=== PATIENT | male | born 2000 | race Two or more races ===

== ENCOUNTER 2021-08-17 16:26 | Outpatient (REF) | payer MEDICAID, SELFPAY ==
[2021-08-17 17:15] LABS: COVID-19 Test Negative (Negative)
== END 2021-08-17 16:27 | disposition home or self-care (01) ==
LOC: HO.LAB 16:26
PROVIDERS: Visit Provider Internal Medicine
DX: Z20.822 Contact with and (suspected) exposure to COVID-19 (principal)
CPT/HCPCS: 36415; 87635

== ENCOUNTER 2021-09-28 07:51 | Outpatient (REF) | payer MEDICAID, SELFPAY ==
[2021-09-28 08:17] LABS: COVID-19 Test Negative (Negative)
== END 2021-09-28 07:52 | disposition home or self-care (01) ==
LOC: HO.LAB 07:51
PROVIDERS: Visit Provider Internal Medicine
DX: Z20.822 Contact with and (suspected) exposure to COVID-19 (principal)
CPT/HCPCS: 36415; 87635

== ENCOUNTER 2021-09-29 04:40 | Emergency (ER) | payer MEDICAID, SELFPAY ==
--- NOTE | ~2021-09-29 | XR_ITS ---
EXAMINATION: XR CHEST CLINICAL INFORMATION: Cough COMPARISON: None TECHNIQUE: 2 views of the chest were obtained. FINDINGS: Cardiac silhouette is normal in size. The lungs are well aerated. There is no lobar consolidation. No pleural effusion or pneumothorax. No acute osseous abnormality. XR/XR chest 2V IMPRESSION: No acute pulmonary pathology.
[2021-09-29 05:58] LABS: IDNOW Serial# 9DD0AD1C; Strep A Nucleic Acid Negative (Negative)
[2021-09-29 05:59] LABS: COVID-19 Test Negative (Negative)
--- NOTE | 2021-09-29 06:37 | ED.URI ---
HPI - URI/Sore Throat General Time Seen by Provider: 09/29/21 06:37 Source: patient Mode of arrival: ambulatory Limitations: no limitations History of Present Illness MD elicited complaint: fever, cough and other (myalgias) Pertinent past history: other (vaccinated x 2 with Pfizer) Onset (ago): day(s) (2) Consistency: intermittent Severity: moderate Exacerbating factors: nothing Relieving factors: nothing Context: sick contacts (goes to college at [employer]) and other (also tells me that since June he has had intermittent fevers at times but no weight loss, night sweats, he is sexually active with males, last negative HIV test at that time) Associated symptoms: fever, chills, myalgias, headache, rhinorrhea and cough Treatments prior to arrival: none Related Data Allergies Allergy/AdvReac Type Severity Reaction Status Date / Time No Known Allergies Allergy Unverified 07/02/20 16:45 Review of Systems Review of Systems: Constitutional : positive Fever, positive Chills, positive fatigue, positive Malaise ENT/Mouth : no sore throat, positive runny nose Eyes: No Discharge Cardiovascular : No Chest Pain, No SOB Respiratory : pos Cough, No Sputum Gastrointestinal : No Nausea, No Vomiting, No Diarrhea Genitourinary : No Dysuria, No Urinary Frequency Musculoskeletal : positive Myalgia Skin : No rash Neuro : No Headache PMF Past Medical History Medical History (Updated 09/29/21 @ 06:46 by Candi Patterson DO) No known health problems Social History Social History (Updated 09/29/21 @ 06:43 by Candi Patterson DO) Alcohol intake: never Patient Tobacco Use Status: Never used Tobacco Use of substances other than those prescribed or required for medical reasons: No Advance Directives: No Advance Directives Information Provided: No Physical Exam Vital Signs: Appearance: Alert. Oriented X3. No acute distress. Eyes: Pupils equal, round and reactive to light. ENT: Pharynx normal. Neck: Normal inspection. Neck supple. CVS: Normal heart rate and rhythm. Pulses normal. Respiratory: No respiratory distress. Breath sounds normal. Abdomen: Soft and non-tender. Skin: Skin warm and dry. Normal skin color. Normal skin turgor. Extremities: No lower extremity edema. No calf ttp Neuro: Oriented X 3. No motor deficit. No sensory deficit. MDM - URI/Sore Throat MDM Narrative Medical decision making narrative: 21 yo male vaccinated x 2 with Pfizer here with 2 days of fevers, body aches, not feeling well chest congestion since Monday he is not toxic, O2 normal , recheck temp 99.4 HR 104 by me after medications (system on downtime) he is not toxic. I did discuss repeat COVID in 2 days but more importantly to get tested [facility] given he had a fever in July and August as well. He is aware of this and plans to go this week. Lab Data Labs: Lab Results 09/29/21 09/29/21 Range/Units 05:10 05:10 COVID-19 (NINA) Negative (Negative) COVID-19 Clin Com See Note S. pyogenes GrpA ROSHNI Negative (Negative) Discharge Plan Discharge Clinical Impression: Viral infection Fever Qualifiers: Fever type: unspecified Qualified Code(s): R50.9 - Fever, unspecified Patient Disposition: Home, Self-Care Instructions: Fever in Adults (ED), Viral Syndrome (ED) Additional Instructions: return to ED for any worsening symptoms or concerns it is important you follow up and get further testing for your fevers including either infectious die[facility] or [facility] as soon as possible COVID test negative x 2 repeat COVID test in 2 days Referrals: Carlita Soliz MD [Physician] - 3 days Stand Alone Forms: Work/School Release
== END 2021-09-29 07:12 | disposition home or self-care (01) ==
PROVIDERS: Emergency Provider Emergency Medicine
DX: R50.9 Fever, unspecified (principal); Z20.822 Contact with and (suspected) exposure to COVID-19
CPT/HCPCS: 36415; 71046; 87635; 87651; 99281; 99283

== ENCOUNTER 2022-07-10 12:28 | Emergency (ER) | payer MEDICAID, SELFPAY ==
[2022-07-10 15:05] VITALS: BP 124/68; PULSE 104; RESP 18; TEMP 37.7; O2SAT 98
[2022-07-10 15:28] LABS: Strep A Nucleic Acid Negative (Negative)
--- NOTE | 2022-07-10 15:32 | ED.GENADULT ---
HPI - General Adult General Chief complaint: Upper Respiratory Symptoms Stated complaint: Fever since Monday Time Seen by Provider: 07/10/22 15:32 Source: patient Mode of arrival: ambulatory Limitations: no limitations History of Present Illness HPI narrative: Patient is a 22 year old male presenting to the emergency department today with a cough and fever. Patient states that he has had a cough and fever for the last 3 days. Patient denies any dizziness, lightheadedness, abdominal pain, nausea, vomiting, chills, blurry vision, double vision, loss of vision, chest pain, difficulty breathing, shortness of breath, back pain, night sweats, pain with urination, increased urinary frequency, increased urinary urgency, blood in his urine or stool, syncope or a near syncopal episode, recent trauma or falls, bowel incontinence, bladder incontinence, bowel retention, bladder retention, or any other complaints at this time. Onset (ago): day(s) (3) Severity: mild Severity scale (1-10): 1 Quality: dull Pain Consistency: constant Relieving factors: none Exacerbating factors: none Associated symptoms: cough and fever/chills Treatments prior to arrival: none Related Data Allergies Allergy/AdvReac Type Severity Reaction Status Date / Time No Known Allergies Allergy Verified 07/10/22 15:05 Review of Systems Constitutional: Constitutional: Reports no additional constitutional complaints, Denies chills, Reports fever(s) and Denies night sweats Eyes: Eyes: Reports no additional eye complaints, Denies blurry vision, Denies change in vision, Denies diplopia, Denies eye discharge, Denies loss of vision and Denies eye pain ENT: Denies dizziness Cardiovascular: Cardiovascular: Reports no additional cardiovascular complaints, Denies chest pain, Denies lightheadedness, Denies Loss of Consciousness and Denies dyspnea Respiratory: Respiratory: Reports no additional respiratory complaints, Reports cough and Denies dyspnea Gastrointestinal: Gastrointestinal: Reports no additional gastrointestinal complaints, Denies abdominal pain, Denies melena, Denies hematochezia, Denies change in bowel habits and Denies change in stool character Genitourinary: Genitourinary: Reports no additional male genitourinary complaints, Denies hematuria, Denies oliguria, Denies difficulty urinating, Denies dysuria, Denies urinary frequency, Denies urinary hesitancy, Denies urinary incontinence and Denies urinary urgency Musculoskeletal: Musculoskeletal: Reports no additional musculoskeletal complaints, Denies numbness and Denies tingling Neurologic: Denies dizziness, Denies loss of vision, Denies numbness and Denies tingling Psychiatric: Psychiatric: Reports no additional psychiatric complaints Endocrine: Endocrine: Reports no additional endocrine complaints Hematologic/Lymphatic: Hematologic/Lymphatic: Reports no additional hematologic/lymphatic complaints Allergic/Immunologic: Allergic/Immunologic: Reports no additional allergic/immunologic complaints PMFSH Past Medical History Attestation statement: The following information was validated with the patient. Source: old records reviewed Medical History No known health problems Social History Social History Alcohol intake: never Patient Tobacco Use Status: Never used Tobacco Advance Directives: No Advance Directives Information Provided: Yes Physical Exam ED Vital Signs: Vital Signs - 24 hr 07/10/22 15:05 Temperature 99.9 F Pulse Rate 104 H Respiratory Rate 18 Blood Pressure 124/68 Pulse Oximetry 98 Oxygen Delivery Method Room Air BMI result Body Mass Index 0.2 Const General: cooperative, no acute distress, alert and awake Nutritional Appearance: well nourished Orientation/consciousness: patient oriented x3 Limitations: no limitations HENMT Head: Yes normal to inspection and Yes atraumatic Ears: hearing grossly normal bilaterally and external ears normal General nose exam: Normal external nose present, no nasal discharge noted and no epistaxis Face and sinus: Yes normal facial exam, No abrasion and No laceration Mouth: Normal oral and palatal mucosa present, no drooling and no muffled voice Eyes General: appearance normal, both eyes and all related structures Periorbital: periorbital findings normal Eyelids: Yes eyelids normal Conjunctivae: conjunctivae normal Pupils: Equal, round and reactive pupils present EOM: EOMs intact bilaterally Neck Neck: Yes normal visual inspection, Yes full ROM and Yes no lymphadenopathy Chest Chest palpation & inspection: normal inspection of the chest Resp Effort & Inspection: normal respiratory effort and able to speak in complete sentences Auscultation: clear to auscultation bilaterally Cardio Rate: regular rate Rhythm: regular rhythm GI Inspection: Yes normal to inspection Neuro General: patient oriented x3 and moves all extremities Cranial nerves: Yes Equal, round and reactive pupils present Cognition (Neuro): normal cognition Motor exam (neuro): 5/5 motor strength present throughout Sensory Exam: Normal double simultaneous stimulation for sensation Coordination: [id number] test normal Extrem General: Yes normal to inspection, Yes full ROM and Yes capillary refill normal Psych Appearance: grossly normal Mental Status: mental status grossly normal Affect: normal affect Attitude: cooperative Thought process: Normal thought process present Thought content: Normal thought content present Insight: Good insight present (Psych) Medical Decision Making MDM Narrative Medical decision making narrative: Patient is a 22 year old male presenting to the emergency department today with a cough and a fever. Patient's physical exam was unremarkable. Patient's rapid COVID and strep tests were negative. I explained my physical exam findings as well as all test results to the patient. I answered all questions asked by the patient. I stressed the importance of the patient taking his medication as prescribed. I stressed the importance of the patient following up with his primary care provider. I stressed the importance of the patient returning to the emergency department immediately if his symptoms were to worsen or if he were to develop any dizziness, shortness of breath, difficulty breathing, chest pain, blurry vision, loss of vision, nausea, vomiting, abdominal pain, fever, chills, back pain, or any other complaints. Patient verbalized agreement and understanding with this treatment plan and discharge. Medical Records Medical records reviewed: Yes I reviewed the patient's medical records. Lab Data Lab results reviewed: Yes I reviewed the patient's lab results. Labs: Lab Results 07/10/22 07/10/22 Range/Units 14:59 15:11 COVID-19 (NINA) Negative (Negative) COVID-19 Clin Com See Note S. pyogenes GrpA ROSHNI Negative (Negative) Discharge Plan Discharge Clinical Impression: Upper respiratory infection Patient Disposition: Home, Self-Care Instructions: Upper Respiratory Infection (ED) Additional Instructions: Follow up with your primary care provider. Return to the emergency department immediately if your symptoms worsen or if you develop any dizziness, shortness of breath, difficulty breathing, chest pain, blurry vision, loss of vision, nausea, vomiting, abdominal pain, fever, chills, back pain, or any other complaints. Referrals: Lucie Ignacio MD [Primary Care Provider] - Stand Alone Forms: Work/School Release Print Language: Singaporean
[2022-07-10 15:33] LABS: COVID-19 Test Negative (Negative); IDNOW Serial# 16C4AD1C
== END 2022-07-10 16:24 | disposition home or self-care (01) ==
PROVIDERS: Emergency Provider Internal Medicine; PCP Internal Medicine
DX: J06.9 Acute upper respiratory infection, unspecified (principal); R50.9 Fever, unspecified; R05.9 Cough, unspecified; Z20.822 Contact with and (suspected) exposure to COVID-19; Z79.899 Other long term (current) drug therapy
CPT/HCPCS: 36415; 87635; 87651; 99283

== ENCOUNTER 2023-08-07 10:35 | Outpatient (REF) | payer MEDICAID, SELFPAY ==
[2023-08-07 15:16] LABS: Alanine Aminotransferase 17 U/L (0-40); Albumin Level 4.9 g/dL (3.5-5.0); Alkaline Phosphatase 74 U/L (39-117); Aspartate Amino Transferase 17 U/L (5-37); Bilirubin Direct 0.4 mg/dL (0.0-0.5); Bilirubin Total 1.1 mg/dL (0.0-1.0); Total Protein 8.2 g/dL (6.5-8.0)
[2023-08-07 16:30] LABS: CT PCR NOT DETECTED (Not Detect.); NG PCR NOT DETECTED (Not Detect.)
[2023-08-08 09:14] LABS: Syphilis Screen Nonreactive (Nonreactive)
[2023-08-08 09:27] LABS: HIV AB/AG Nonreactive (Nonreactive); HIV Num 1 0.05 S/CO (0.00-0.99)
== END 2023-08-07 10:36 | disposition home or self-care (01) ==
LOC: HO.CHCLDS 10:35
PROVIDERS: Visit Provider Internal Medicine
DX: Z11.3 Encounter for screening for infections with a predominantly sexual mode of transmission (principal)
CPT/HCPCS: 0353U; 80076; 86780; 87389

== ENCOUNTER 2023-08-30 08:08 | Outpatient (AMB) | payer MEDICAID, SELFPAY ==
--- NOTE | 2023-08-30 08:17 | MHC.OFFVIS ---
Intake Vital Signs 08/30/23 08:19 Height 5 ft 6 in Weight 167 lb BMI 27.0 BP 105/63 Blood Pressure Location Lt brachial Position Sitting Pulse 90 Intake Visit Reasons: Constipation Intake Note: Patient new consult for Constipation. Patient cc: abdominal bloating on and off, constipation with some blood, hemorrhoids ??, and denies any other GI issues. 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 Patient was sent to us by his PCP. Patient reports ongoing constipation. Patient reports that he has been constipated for over a month. He tried to incorporate fiber in his diet. Tried taking Metamucil, drinking minimal mom 36 oz of water every day and he continues to be constipated. Patient reports abdominal bloating and cramping when he is constipated. Occasional blood when he wipes after a bowel movement. Patient did notice rectal bulge that is only there after bowel movement when he is very constipated. Patient denies melena, hematochezia, unintentional weight loss or ribbon like stools. Patient denies any acid reflux, dyspepsia, dysphagia or odynophagia. Patient reports a good appetite. Mostly eats Armenian food. Recently has been eating more food that is fried, fast food. Patient is working so he does not have chance to eat home cooked meals as much as he used to. [facility] Medical History No known health problems Social History Alcohol intake: never Patient Tobacco Use Status: Never used Tobacco Review of Systems Const Denies weight gain and Denies weight loss ENT Reports no additional complaints, Denies dysphagia and Denies odynophagia Card Reports no additional complaints Resp Reports no additional complaints GI Denies abdominal pain, Denies belching, Denies melena, Reports bloating, Reports constipation, Denies dysphagia, Denies excessive flatus, Denies dyspepsia, Denies heartburn, Denies diarrhea, Denies loose stools, Denies nausea, Denies odynophagia and Denies vomiting Reports no additional complaints Musc Reports no additional complaints Neuro Reports no additional complaints Psych Reports no additional complaints Endo Reports no additional complaints Physical Exam Const General: healthy appearing, no acute distress and well developed Nutritional Appearance: well nourished Orientation/consciousness: patient oriented x3 HEENT Head: Yes normal to inspection, Yes normocephalic and Yes atraumatic Face and sinus: Yes normal facial exam Mouth: Normal oral and palatal mucosa present Throat: Yes posterior oropharynx normal, Yes tonsils normal and Yes uvula midline Eyes General: appearance normal, both eyes and all related structures Neck Neck: Yes normal visual inspection, Yes full ROM and Yes trachea midline Thyroid: Thyroid normal Resp Effort & Inspection: normal respiratory effort, able to speak in complete sentences, no tracheal deviation and symmetric chest movement Auscultation: clear to auscultation bilaterally Cardio Rate: regular rate Heart sounds: S1 normal heart sound present and S2 normal heart sound present GI Inspection: Yes normal to inspection and No distended Palpation (GI): Soft to palpation, not firm, nontender and No hepatosplenomegaly present Auscultation: normal bowel sounds General: Yes no CVA tenderness Back/Spine/Pelvis Back: no CVA tenderness Skin General skin exam: elasticity normal, turgor normal and dry skin Neuro General: patient oriented x3 Psych Appearance: grossly normal Mental Status: mental status grossly normal Assessment & Plan Assessment & Plan (1) Abdominal bloating: Code(s): R14.0 - Abdominal distension (gaseous) (2) Chronic idiopathic constipation: Code(s): K59.04 - Chronic idiopathic constipation (3) External hemorrhoid: Code(s): K64.4 - Residual hemorrhoidal skin tags Plan Patient was encouraged to increase fruits and vegetables in his diet. Continue drinking plenty fluids, increase activity to promote better bowel activity. Patient will start taking MiraLax in the morning and stool softener and the evening. Patient will use Proctosol I will see him in 2 months, sooner on as needed basis. Patient is agreeable to this plan and verbalizes understanding of instructions. He was given the opportunity to ask questions and all questions answered. Thank you for allowing me to participate in his care Medications: New polyethylene glycol 3350 (Miralax) 17 grams PO DAILY 510 grams 2RF hydrocortisone 2.5% (Proctosol HC) 1 appl AL BID-QID PRN 30 grams 2RF hemorrhoids K64.9 - Unspecified hemorrhoids docusate sodium 100 mg PO BEDTIME 30 caps 3RF K59.00 - Constipation, unspecified Coding Level of Care Code New Pt Level 3 (92578) Diagnoses Abdominal bloating R14.0 Chronic idiopathic constipation K59.04 External hemorrhoid K64.4 Time Spent (min) 40 Comment 30 minutes spent with patient and additional 10 minutes spent reviewing his records
[2023-08-30 08:19] VITALS: BP 105/63; PULSE 90; BMI 27.0
== END 2023-08-30 08:42 | disposition home or self-care (01) ==
PROVIDERS: PCP Internal Medicine; Visit Provider Nurse Practitioner Family
DX: R14.0 Abdominal distension (gaseous) (principal); K59.04 Chronic idiopathic constipation; K64.4 Residual hemorrhoidal skin tags
CPT/HCPCS: 99203

== ENCOUNTER → 2023-08-30 08:08 | Outpatient (BNVA) | payer MEDICAID, SELFPAY | PROVIDERS: PCP Internal Medicine; Visit Provider Nurse Practitioner Family | DX: R14.0 Abdominal distension (gaseous) (principal); K59.04 Chronic idiopathic constipation; K64.4 Residual hemorrhoidal skin tags | CPT/HCPCS: 99202; 99212 ==

== ENCOUNTER 2023-09-13 11:33 | Outpatient (REF) | payer MEDICAID, SELFPAY ==
[2023-09-14 09:27] LABS: HBS Num1 1.24 mIU/mL (0-7.99); HBc Num1 0.09 S/CO (0.00-0.79); HBsAGNum1 0.38 S/CO (0.00-0.99); Hepatitis A Antibody IgM 0.13 Index (0-0.79); Hepatitis B Core Antibody Nonreactive (Nonreactive); Hepatitis B Surface Antigen Negative (Negative); ~HepC Num1 0.19 S/CO (0.00-0.79); ~Hepatitis A Antibody IgM Nonreactive (Nonreactive); ~Hepatitis B Surface Antibody NONREACTIVE (Nonreactive); ~Hepatitis C Antibody Nonreactive (Nonreactive)
== END 2023-09-13 11:34 | disposition home or self-care (01) ==
LOC: HO.CHCLDS 11:33
PROVIDERS: Visit Provider Internal Medicine
DX: Z11.3 Encounter for screening for infections with a predominantly sexual mode of transmission (principal)
CPT/HCPCS: 36415; 86704; 86706; 86709; 86803; 87340

== ENCOUNTER 2025-09-26 08:16 | Outpatient (AMB) | payer OTHER, SELFPAY ==
--- NOTE | 2025-09-26 08:21 | A.OFFVIS_ITS ---
Vital Signs 09/26/25 08:22 Height 5 ft 6 in Weight 178 lb BMI 28.7 BP 132/66 Blood Pressure Location Rt brachial Position Sitting Pulse 86 Pulse Source Pulse Oximeter Pulse Oximetry (%) 99 Oxygen Delivery Method Room Air Intake Visit Reasons: 30 MIN. Constipation mgmt KELSI 2023 w/ Claudine. Intake Note: Est pt for mgmt of constipation. KELSI 2023. CC; C/O constipation, bloating, generalized abd cramping, and occasional sharp lower abd pains. Pt denies any additional sx or concerns. He reports he had issues with maintaining his therapies after moving out of state, changing jobs, and then returning to the [facility] and [facility]. 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 Constipation mgmt KELSI 2023 w/ Claudine.: Details: LAST VISIT Abdominal bloating Chronic idiopathic constipation External hemorrhoid Plan Patient was encouraged to increase fruits and vegetables in his diet. Continue drinking plenty fluids, increase activity to promote better bowel activity. Patient will start taking MiraLax in the morning and stool softener and the evening. Patient will use Proctosol I will see him in 2 months, sooner on as needed basis. Patient is agreeable to this plan and verbalizes understanding of instructions. He was given the opportunity to ask questions and all questions answered. ? Thank you for allowing me to participate in his care New polyethylene glycol 3350 (Miralax) 17 grams PO DAILY 510 grams 2RF hydrocortisone 2.5% (Proctosol HC) 1 appl [place] BID-QID PRN 30 grams 2RF hemorrhoids K64.9 docusate sodium 100 mg PO BEDTIME 30 caps 3RF K59.00 TODAY'S VISIT Patient is here today for requested visit. Patient reports that he continues to have trouble with his bowels. Patient reports worsening hemorrhoids. Patient feels like his bowel pattern changed. The stools are usually soft, abdominal cramping prior to bowel movements. Patient reports using MiraLax as needed. Couple episodes of rectal bleed. Patient reports that he tries not to strain. Patient denies rectal pain or discomfort. Denies melena, unintentional weight loss. Patient denies any dyspepsia, dysphagia or odynophagia. Patient never had anesthesia in the past. No history of sleep apnea. Not on any anticoagulation medication. No family history of CRC [facility] Medical History (Reviewed 09/26/25 @ 08:21 by Neal Estrada [facility]) No known health problems Social History Alcohol intake: never Patient Tobacco Use Status: Never used Tobacco Review of Systems Const Denies weight gain and Denies weight loss ENT Reports no additional complaints, Denies dysphagia and Denies odynophagia Card Reports no additional complaints Resp Reports no additional complaints GI Reports abdominal pain (Cramping), Denies belching, Denies melena, Reports bloating, Reports hematochezia, Denies change in bowel habits, Reports constipation, Denies dysphagia, Denies excessive flatus, Denies dyspepsia, Denies heartburn, Denies diarrhea, Denies loose stools, Denies nausea, Denies odynophagia and Denies vomiting Reports no additional complaints Musc Reports no additional complaints Neuro Reports no additional complaints Psych Reports no additional complaints Endo Reports no additional complaints Physical Exam Const General: healthy appearing, no acute distress and well developed Nutritional Appearance: well nourished Orientation/consciousness: patient oriented x3 Resp Effort & Inspection: normal respiratory effort, able to speak in complete sentences, no tracheal deviation and symmetric chest movement Auscultation: clear to auscultation bilaterally Cardio Rate: regular rate GI Inspection: Yes normal to inspection and No distended Palpation (GI): Soft to palpation, not firm, nontender and No hepatosplenomegaly present Auscultation: normal bowel sounds General: Yes no CVA tenderness Back/Spine/Pelvis Back: no CVA tenderness Skin General skin exam: elasticity normal, turgor normal and dry skin Neuro General: patient oriented x3 Psych Appearance: grossly normal Mental Status: mental status grossly normal Assessment & Plan Assessment & Plan (1) Abdominal bloating: Code(s): R14.0 - Abdominal distension (gaseous) (2) Chronic idiopathic constipation: Code(s): K59.04 - Chronic idiopathic constipation (3) External hemorrhoids: Code(s): K64.4 - Residual hemorrhoidal skin tags Plan Patient continues to have constipation, rectal discomfort with hemorrhoids most likely. However patient's symptoms have been going on for a long time. Will send him for colonoscopy. Patient denies any family history of CRC. Patient never had anesthesia in the have. What to expect before during and after procedure discussed with patient. Stressed the importance of good bowel prep and clear liquid diet. Patient will follow-up in our office after the procedure. He was encouraged to call us if he will have any GI concerning symptoms. Patient is agreeable to this plan and verbalizes understanding of instructions. He was given the opportunity to ask questions and all questions answered Thank you for allowing me to participate in his care Orders: Referrals GI Procedure Notification Z12.11 - Encounter for screening for malignant neoplasm of colon Medications: New bisacodyl (Dulcolax (bisacodyl)) take 4 tabs at noon the day before your colonoscopy 20 mg (4 x 5 mg) PO ONCE 4 tabs 0RF constipation 1 day Z12.11 - Encounter for screening for malignant neoplasm of colon docusate sodium 100 mg PO DAILY 30 caps 3RF K59.00 - Constipation, unspecified hydrocortisone 2.5% (Proctosol HC) 1 appl [place] BID-QID PRN 30 grams 2RF hemorrhoids K64.9 - Unspecified hemorrhoids polyethylene glycol 3350 (Miralax) As directed by gastroenterology department at [facility] 238 grams PO ONCE 238 grams 0RF Z12.11 - Encounter for screening for malignant neoplasm of colon Coding Level of Care Code Est Pt Level 3 (48144) Diagnoses Abdominal bloating R14.0 Chronic idiopathic constipation K59.04 External hemorrhoids K64.4 Time Spent (min) 30 Comment 20 minutes spent with patient and additional 10 minutes spent reviewing his records
[2025-09-26 08:22] VITALS: BP 132/66; PULSE 86; O2SAT 99; BMI 28.7
== END 2025-09-26 09:30 | disposition home or self-care (01) ==
LOC: HO.HGI 08:16
PROVIDERS: PCP Internal Medicine; Visit Provider Nurse Practitioner Family
DX: R14.0 Abdominal distension (gaseous) (principal); K59.04 Chronic idiopathic constipation; K64.4 Residual hemorrhoidal skin tags
CPT/HCPCS: 99213

== ENCOUNTER → 2025-09-26 08:16 | Outpatient (BNVA) | payer SELFPAY | PROVIDERS: PCP Internal Medicine; Visit Provider Nurse Practitioner Family | DX: Z12.11 Encounter for screening for malignant neoplasm of colon (principal); K59.04 Chronic idiopathic constipation; K64.4 Residual hemorrhoidal skin tags; K62.89 Other specified diseases of anus and rectum; R14.0 Abdominal distension (gaseous) | CPT/HCPCS: 99212 ==